=== PATIENT | male | born 1995 | race African-American/Black ===

== ENCOUNTER 2023-10-11 22:16 | Emergency (ER) | payer MEDICAID ==
[~2023-10-11] VITALS: Ht 175.3 cm; Wt 81.6 kg
[2023-10-11 23:25] VITALS: BP 128/75; PULSE 81; RESP 12; TEMP 98; O2SAT 98
[2023-10-11] MEDS ORDERED: IBUP-2030 MT (23:58)
== END 2023-10-12 01:16 | disposition home or self-care (01) ==
LOC: ER 22:16
DX: S63.601A Unspecified sprain of right thumb, initial encounter (principal); X58.XXXA Exposure to other specified factors, initial encounter; Y93.89 Activity, other specified; Y92.89 Other specified places as the place of occurrence of the external cause; Y99.8 Other external cause status
CPT/HCPCS: 29130; 73120; 99283